=== PATIENT | female | born 1990 | race American Indian/Alaskan Native ===

== ENCOUNTER 2024-12-22 06:38 | Emergency (ER) | payer MEDICAID, SELFPAY ==
[2024-12-22] VITALS (7 sets, daily range): BP systolic 110–173; BP diastolic 72–95; PULSE 87–103; RESP 17–23; TEMP 36.6–36.9; O2SAT 95–99; BMI 31.1
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
--- NOTE | 2024-12-22 07:09 | EKG_ITS ---
[facility] Test Date: 2024-12-22 Pat Name: CLARA COOPER Department: Room: - Gender: Female Lei Maker: : 1990 Requested By: Felipe Berry Order Number: [id number] Reading MD: Felipe Berry Measurements Intervals [place]gap Rate: 93 P: 46 IA: 149 QRS: 84 QRSD: 94 T: 57 QT: 353 QTc: 440 Interpretive Statements SINUS RHYTHM Compared to ECG 10/17/2023 22:53:11 Sinus tachycardia no longer present Myocardial infarct finding no longer present /store/S0/[id number]/[id number].pdf
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
[2024-12-22 07:41] LABS: Lactate (Lactic Acid) 3.1 mMol/L (0.4-2.0)
[2024-12-22 07:46] LABS: Basophils # (Auto) 0.1 Thou/mm3 (0.0-0.2); Basophils % (Auto) 1 % (0-2.5); Eosinophils # (Auto) 0.2 Thou/mm3 (0.0-0.5); Eosinophils % (Auto) 2 % (0-10); Hematocrit 39.4 % (36.0-46.0); Hemoglobin 13.6 g/dL (12.0-16.0); Immature Granulocytes Auto 0.04 Thou/mm3 (0.00-0.00); Lymphocytes # (Auto) 4.2 Thou/mm3 (1.0-4.8); Lymphocytes % (Auto) 46 % (10-50); Mean Corpuscular HGB Conc 34.5 g/dl (31.0-37.0); Mean Corpuscular Hemoglobin 28.4 pg (25.0-35.0); Mean Corpuscular Volume 82 fL (80-100); Monocytes # (Auto) 0.3 Thou/mm3 (0.0-0.8); Monocytes % (Auto) 4 % (0-12); Neutrophils # (Auto) 4.4 Thou/mm3 (1.8-7.7); Neutrophils % (Auto) 48 % (37-80); Nucleated Red Blood Cell # 0.00 Thou/mm3 (0.00-0.00); Nucleated Red Blood Cell % 0 /100 WBC (0); Platelet Count 219 Thou/mm3 (140-440); RDW Standard Deviation 36.6 fL (36.4-46.3); Red Blood Count 4.79 Miln/mm3 (4.00-5.20); White Blood Count 9.1 Thou/mm3 (3.6-11.0)
[2024-12-22] MEDS: TETANUS,DIPHTHERIA TOXOIDS/PF (ADULT) 0.5 ML SYRINGE IMi (07:50)
[2024-12-22 08:03] LABS: Alanine Aminotransferase 57 U/L (10-49); Albumin, Serum 4.4 gm/dL (3.5-5.0); Albumin/Globulin Ratio 1.7 (1.2-2.2); Alkaline Phosphatase 71 U/L (46-116); Anion Gap 13 (7-16); Aspartate Amino Transferase 99 U/L (0-34); BUN/Creatinine Ratio 8 Ratio (12-20); Bilirubin,Total 0.3 mg/dL (0.3-1.2); Blood Urea Nitrogen 6 mg/dL (9-23); Calcium 9.0 mg/dL (8.3-10.6); Calcium (Corrected) 9.0 mg/dL (8.5-10.1); Carbon Dioxide 23.0 mMol/L (20.0-31.0); Chloride 102 mMol/L (98-107); Creatinine (Component) 0.8 mg/dL (0.6-1.3); Estimated Creatinine Clearance 108.6 mL/min (>60); Globulin 2.6 gm/dL (2.3-3.5); Glucose 332 mg/dL (74-106); Osmolality,Calculated 286 (275-295); Potassium 3.2 mMol/L (3.4-5.1); Sodium 138 mMol/L (136-145); Total Protein 7.0 gm/dL (5.7-8.2); Troponin I < 0.002 ng/mL (0.0-0.045); eGFR > 60 See Note
[2024-12-22 08:31] LABS: Collection Type, Urine Voided; RBC,Urine 0 /hpf (0-3); WBC,Urine 0 /hpf (0-5)
--- NOTE | 2024-12-22 08:43 | PC.NURSE ---
DR Baker at bedside
[2024-12-22 08:50] LABS: Alcohol, Urine Positive (Negative); Amphetamine/Methamp Scrn,U Negative (Negative); Barbiturate Screen,Urine Negative (Negative); Benzodiazepines Screen,Urine Negative (Negative); Benzoylecgonine Screen, Ur Negative (Negative); Fentanyl Screen,Urine Negative (Negative); Opiate Screen,Urine Negative (Negative); THC Screen,Urine Negative (Negative)
[2024-12-22 09:42] LABS: Alcohol, Blood Medical 26.2 mg/dL (0-10.0)
[2024-12-22] MEDS: SODIUM CHLORIDE 0.9% 500 ML 500 ML 999 ML IV (10:08)
[2024-12-22] MEDS: KETOROLAC INJ 30 MG/ML VIAL IVP (10:08)
[2024-12-22] MEDS: INSULIN LISPRO (AdmeLOG) 1 UNIT/0.01 ML UNIT 3 UNIT SC (10:10)
[2024-12-22 10:38] LABS: Reflex Lactate? Y
[2024-12-22 11:03] LABS: Lactic Acid, 3 HR 3.0 mMol/L (0.4-2.0)
[2024-12-22 11:20] LABS: HCG Qualitative,Urine Negative
[2024-12-22 12:37] LABS: Bacteria,Urine Rare; Bilirubin,Urine Negative (Negative); Blood,Urine Trace (Negative); Clarity,Urine Clear (Clear/Hazy); Color,Urine Yellow (Lt Yel-Yel); Glucose, Urine 3+ (Negative); Ketones,Urine Trace (Negative); Leukocyte Esterase,Urine Negative (Negative); Nitrite,Urine Negative (Negative); PH,Urine 6.0 (5.0-7.0); Protein,Urine 1+ (Neg - Trace); Specific Gravity,Urine 1.015 (1.001-1.035); Squamous Epithelial Cell,Urine 4 /hpf (0-5); Urobilinogen,Urine 1.0 mg/dL (0.0-1.0)
== END 2024-12-22 11:38 | disposition home or self-care (01) ==
PROVIDERS: PCP Family Medicine
DX: S01.81XA Laceration without foreign body of other part of head, initial encounter (principal); S19.9XXA Unspecified injury of neck, initial encounter; S41.111A Laceration without foreign body of right upper arm, initial encounter; S69.92XA Unspecified injury of left wrist, hand and finger(s), initial encounter; S69.91XA Unspecified injury of right wrist, hand and finger(s), initial encounter; V43.52XA Car driver injured in collision with other type car in traffic accident, initial encounter; Z23 Encounter for immunization
CPT/HCPCS: 12002; 36415; 70450; 72125; 73100; 80053; 80307; 80320; 81001; 81025; 83605; 84484; 85025; 90471; 90714; 93005; 96361; 96374; 99284; J1815; J1885; J7999; A9270; G0480